=== PATIENT | female | born 1990 | race Caucasian/White ===

== ENCOUNTER 2021-09-25 08:47 | Emergency (ER) | payer MEDICAID, SELFPAY ==
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
--- NOTE | ~2021-09-25 | CT_ITS ---
EXAMINATION: HEAD CT WITHOUT CONTRAST MAXILLOFACIAL CT WITHOUT CONTRAST CLINICAL INFORMATION: Trauma. Jaw pain. COMPARISON: None. TECHNIQUE: Contiguous axial imaging of the head was performed without the administration of IV contrast. Axial multidetector volumetric images were also obtained through the facial bones without contrast from the frontal sinuses through the mandible. Multiplanar reconstructed images in coronal and sagittal orientations were submitted. This CT examination was performed using dose optimization techniques as appropriate, variously including the following: *Automated exposure control *Adjustment of mA and/or kV according to patient size (this includes techniques or standardized protocols for targeted exams where dose is matched to indication/reason for exam; i.e. extremities or head) *Use of iterative reconstruction technique DOSE: 787 mGy-cm FINDINGS: HEAD: There is no evidence of acute intracranial hemorrhage or territorial infarction. No abnormal mass-effect or midline shift. No extra-axial fluid collections. Duron to white matter differentiation is well preserved. The ventricles are normal in size and configuration. There is no abnormal attenuation within the brain parenchyma. No acute osseous or soft tissue abnormalities. There is a 2 x 1.9 cm area of focal cortical thickening at the left parietal calvarium along the external table, most consistent with a osteoma. The sinuses and mastoid air cells are clear. MAXILLOFACIAL: There is a minimally displaced, comminuted fracture of the nasal bone. No additional facial fractures are identified. The mandible, maxilla, pterygoid plates, zygomatic arches, paranasal sinus hennessy, and bony orbits are intact. There is focal soft tissue swelling over the right knee mandible anteriorly. No underlying radiodense foreign bodies or discrete hematomas. The paranasal sinuses and mastoid air cells remain well-aerated. Leftward deviation of the nasal septum. Nasopharynx and oropharynx are unremarkable. Imaged cervical spine is intact with mild degenerative spondylosis. CT/CT facial bones wo con IMPRESSION: 1. No acute intracranial pathology. 2. Nondisplaced nasal bone fracture. No additional facial fractures. 3. Soft tissue swelling over the right hemimandible.
--- NOTE | ~2021-09-25 | XR_ITS ---
EXAMINATION: XR HAND, LEFT CLINICAL INFORMATION: Pain status post trauma left hand fourth and fifth digits COMPARISON: None TECHNIQUE: PA, lateral, and oblique views of the left hand. FINDINGS: There is no evidence of acute fracture or dislocation of the left hand. No significant soft tissue swelling is appreciated. Joint spaces are maintained. No erosive changes seen. XR/XR hand LT min 3V IMPRESSION: No significant bony abnormality of the left hand identified.
[2021-09-25 08:50] VITALS: BP 115/80; PULSE 88; RESP 19; TEMP 36.6; O2SAT 98; BMI 19.8
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
[2021-09-25 09:31] LABS: MANUAL DIFF FLAG NO
[2021-09-25 09:33] LABS: Basophils Percent Auto 0.8 % (0-2); Eosinophils Absolute Auto 0.1 X10*3/uL (0.0-0.4); Eosinophils Percent Auto 1.9 % (0-4); Hematocrit 41.3 % (37.0-47.0); Hemoglobin 13.9 g/dl (12.0-16.0); Imm Gran Abs Auto 0.02 X10*3/uL (0.00-0.03); Imm Gran Pct Auto 0.4 % (0.0-0.4); Lymphocytes Percent Auto 37.9 % (20-40); Mean Corpuscular HGB Conc 33.7 g/dl (31.0-35.0); Mean Corpuscular Hemoglobin 31.8 pg (27.0-33.0); Mean Corpuscular Volume 94.5 fL (80.0-98.0); Mean Platelet Volume 9.9 fL (9.4-12.3); Monocytes Absolute Auto 0.4 X10*3/uL (0.1-1.2); Monocytes Percent Auto 7.7 % (2-11); Neutrophils Absolute Auto 2.7 x10*3/uL (2.0-8.3); Neutrophils Percent Auto 51.3 % (45-73); Platelet Count 328 X10*3/uL (160-400); Red Blood Count 4.37 X10*6/uL (4.20-5.50); Red Cell Distribution Width 12.9 % (11.0-16.0); White Blood Count 5.2 X10*3/uL (4.8-10.8)
[2021-09-25] MEDS: Acetaminophen 325 MG TABLET 975 MG PO (09:33)
[2021-09-25 09:40] LABS: INTERNATIONAL NORM RATIO 1.1 (0.9-1.1); Prothrombin Time 12.6 SEC (9.9-13.0)
[2021-09-25 09:43] LABS: Partial Thromboplastin Time 31.1 SEC (24.1-38.0)
[2021-09-25 09:55] LABS: COVID-19 Test Negative (Negative); IDNOW Serial# 16C4AD1C
[2021-09-25 10:05] LABS: Alanine Aminotransferase 17 U/L (0-31); Albumin Level 4.4 g/dL (3.5-5.0); Alkaline Phosphatase 42 U/L (39-117); Anion Gap 14 (12-20); Aspartate Amino Transferase 17 U/L (5-31); Bilirubin Direct 0.2 mg/dL (0.0-0.5); Bilirubin Total 0.3 mg/dL (0.0-1.0); Blood Urea Nitrogen 11 mg/dL (9-16); Calcium 9.8 mg/dL (8.4-10.2); Carbon Dioxide 23 mmol/L (22-29); Chloride 107 mmol/L (96-108); Creatinine Clr Calc Pharmacy 81.7; Estimated Glomerular Filt Rate > 60; Glucose Random 95 mg/dL (60-115); Lipase 10 U/L (8-78); Magnesium 1.8 mg/dL (1.6-2.6); Potassium 4.7 mmol/L (3.3-5.1); Sodium 139 mmol/L (135-145); Total Protein 7.1 g/dL (6.5-8.0)
[2021-09-25 10:09] LABS: HCG Quantitative < 2 mIU/mL
[2021-09-25 10:26] LABS: Appearance Urine CLEAR; Color Urine YELLOW; Glucose Urine UA NEG (NEG); Leukocyte Esterase Urine NEG (NEG); Nitrite Urine NEG (NEG); PH 6.5 (5.0-8.0); UACC Culture Trigger NO; Urine Blood 2+ (NEG); Urine Ketones NEG (NEG); Urine Protein NEG (NEG-TRACE)
[2021-09-25 10:30] LABS: UPreg QC Valid YES; Urine Pregnancy NEGATIVE (NEGATIVE)
[2021-09-25 10:33] LABS: Mucus Urine 3+ /LPF; Squamous Epithelial Cell Urine 2+ /LPF
[2021-09-25 10:34] LABS: WBC Urine 0 /HPF (0-4)
[2021-09-25 10:37] LABS: Amphetamine Screen Urine Not Detected (Not Detect); Barbiturates, Urine Not Detected (Not Detect); Benzodiazepines Screen Urine Not Detected (Not Detect); Cannabinoid Screen Urine POSITIVE (Not Detect); Cocaine Screen Urine Not Detected (Not Detect); Fentanyl, urine Not Detected (Not Detect); Opiate Screen Urine Not Detected (Not Detect); Phencyclidine Screen Urine Not Detected (Not Detect)
[2021-09-25] MEDS: iohexoL 350 MG/ML 75 ML INFUS..BTL IV (11:03)
[2021-09-25 12:40] VITALS: BP 99/74; PULSE 69; RESP 14; TEMP 36.7; O2SAT 100
[2021-09-25] MEDS: Ibuprofen 600 MG TABLET PO (13:43)
== END 2021-09-25 14:31 | disposition home or self-care (01) ==
PROVIDERS: Physician Assistant; Emergency Provider Student in an Organized Health Care Education/Training Program
DX: S02.2XXA Fracture of nasal bones, initial encounter for closed fracture (principal); S00.81XA Abrasion of other part of head, initial encounter; M54.2 Cervicalgia; F12.90 Cannabis use, unspecified, uncomplicated; R51.9 Headache, unspecified; R31.9 Hematuria, unspecified; V29.40XA Motorcycle driver injured in collision with unspecified motor vehicles in traffic accident, initial encounter; Y93.9 Activity, unspecified; Y92.410 Unspecified street and highway as the place of occurrence of the external cause; Y99.9 Unspecified external cause status; Z20.822 Contact with and (suspected) exposure to COVID-19; Z79.899 Other long term (current) drug therapy
CPT/HCPCS: 36415; 70450; 70486; 73130; 74177; 80048; 80076; 80307; 81001; 81025; 82550; 83690; 83735; 84702; 85025; 85610; 85730; 87635; 96365; 99284; Q9967

== ENCOUNTER 2022-12-15 07:41 | Emergency (ER) | payer OTHER, SELFPAY ==
[2022-12-15 07:57] VITALS: BP 108/67; PULSE 84; RESP 12; TEMP 36.9; O2SAT 100; BMI 21.7
[2022-12-15 08:50] LABS: IDNOW Serial# 08D9AD1C; Influenza A Negative (Negative); Influenza B2 Negative (Negative)
[2022-12-15 08:51] LABS: COVID-19 Test Negative (Negative); IDNOW Serial# BCCEAD1C
[2022-12-15 09:01] LABS: IDNOW Serial# 08D9AD1C; Strep A Nucleic Acid Negative (Negative)
--- NOTE | 2022-12-28 14:00 | ED_ITS ---
HPI - General Adult General Chief complaint: General Medical Stated complaint: sore throat Time Seen by Provider: 12/15/22 08:56 Related Data Allergies Allergy/AdvReac Type Severity Reaction Status Date / Time Seasonal Allergies Allergy Itchy Eyes Verified 09/25/21 09:05 [facility] Social History Social History Advance Directives: No Physical Exam ED Vital Signs: BMI result Body Mass Index 21.7 Medical Decision Making Lab Data Labs: Lab Results 12/15/22 12/15/22 12/15/22 Range/Units 08:10 08:10 08:18 COVID-19 (CARLENE) Negative (Negative) COVID-19 Clin Com See Note Influenza Type A (STEPHIE) Negative (Negative) Influenza Type B (STEPHIE) Negative (Negative) Influenza A & B Note See Note S. pyogenes GrpA STEPHIE Negative (Negative) Discharge Plan Discharge Clinical Impression: Acute sore throat Patient Disposition: Left Without Being Seen Discharge Date/Time: 12/15/22 09:33
== END 2022-12-15 09:33 | disposition left against medical advice (07) ==
LOC: HO.ED 09:18
PROVIDERS: Emergency Provider Emergency Medicine
DX: J02.9 Acute pharyngitis, unspecified (principal); Z20.822 Contact with and (suspected) exposure to COVID-19
CPT/HCPCS: 87502; 87635; 87651; 99281; 99283

== ENCOUNTER 2023-05-22 08:51 | Outpatient (REF) | payer OTHER, SELFPAY ==
[2023-05-23 05:53] LABS: CT PCR NOT DETECTED (Not Detect.); NG PCR NOT DETECTED (Not Detect.)
[2023-05-23 12:30] LABS: BV Int Neg Control Negative (Negative); BV Int Pos Control Positive (Positive)
== END 2023-05-22 08:52 | disposition home or self-care (01) ==
LOC: HO.LAB 08:51
PROVIDERS: PCP Nurse Practitioner Family; Visit Provider Obstetrics & Gynecology
DX: Z20.2 Contact with and (suspected) exposure to infections with a predominantly sexual mode of transmission (principal); Z31.7 Encounter for procreative management and counseling for gestational carrier
CPT/HCPCS: 0353U; 87480; 87510; 87660; 99202

== ENCOUNTER 2023-05-22 08:51 | Outpatient (AMB) | payer OTHER, SELFPAY ==
--- NOTE | 2023-05-22 09:06 | MHC.OFFVIS ---
Intake Vital Signs 05/22/23 09:08 Height 5 ft 1 in Weight 115 lb BMI 21.7 BP 100/64 Intake Visit Reasons: HSG Consult/DO NOT RS Intake Note: Patient needs HSG for surrogacy Allergies Seasonal Allergies Allergy (Verified 05/22/23 09:06) Itchy Eyes Is last menstrual period known: Yes Last menstrual period: 04/27/23 HPI HPI Comments History of Present Illness Details Presenting requesting a saline hysterosonogram day 7-10 as part of the surrogacy workup. The patient is going through a clinic in [place] and would like to be a surrogate for a couple with infertility. Hysterosonogram was requested as part of the workup on day 7-10 of her menstrual cycle. No abnormal uterine bleeding, no vaginal discharge, no other concerns PFSH Surgical History Hx of tubal ligation Social History Alcohol intake: never Patient Tobacco Use Status: Never used Tobacco Sexual orientation: Straight/Heterosexual Gender identity: Female Female Reproductive History Menstrual Date of last menstrual period: 04/27/23 control method: permanent sterilization Permanent Sterilization: BTL Total pregnancies: 3 Full term: 3 Number of Living Children: 3 Review of Systems Const All systems reviewed & are unremarkable except as noted in HPI and below Physical Exam Vital Signs: Last Vital Signs BP 100/64 05/22/23 09:08 BMI result Body Mass Index 21.7 General: Yes no CVA tenderness External Female Exam: normal external appearance and normal appearance of the urethra Speculum Exam - Vagina: normal appearance of the vagina, normal palpation, no lesions and no masses Speculum Exam - Cervix: normal appearance of the cervix, normal palpation, no lesions, no masses and nontender Bimanual exam- vagina & uterus: normal bimanual exam, normal palpation, uterine size normal, normal palpation, uterine shape normal, No Cervical tenderness present and non-tender Bimanual Exam- Adnexa, other: normal adnexae Back/Spine/Pelvis Back: no CVA tenderness Assessment & Plan Assessment & Plan (1) Encounter for procreative management and counseling for person acting as gestational surrogate: Code(s): Z31.7 - Encounter for procreative management and counseling for gestational carrier Plan: Blood work workup has been done and ordered by the patient PCP . GC/CT with BV panel taken. Instructions given the patient to request from [facility] in [place] documentation requesting the specific test saline infusion hystero sonogram, what day of her next cycle, diagnosis and reason for the test, signed by [facility] specialist for certified in addition to call day 1 of next menstrual cycle in order to schedule day 7-10 saline hysterosonogram. Orders: Orders Bacterial Vaginosis Panel Today Z20.2 - Contact with and (suspected) exposure to infections with a predominantly sexual mode of transmission, Z31.7 - Encounter for procreative management and counseling for gestational carrier CT NG by PCR Today Z20.2 - Contact with and (suspected) exposure to infections with a predominantly sexual mode of transmission, Z31.7 - Encounter for procreative management and counseling for gestational carrier Coding Level of Care Code New Pt Level 3 (48502) Diagnoses Encounter for procreative management and counseling for person acting as gestational surrogate Z31.7
[2023-05-22 09:08] VITALS: BP 100/64; BMI 21.7
== END 2023-05-22 09:51 | disposition home or self-care (01) ==
LOC: HO.HWS 08:51
PROVIDERS: PCP Nurse Practitioner Family; Visit Provider Obstetrics & Gynecology
DX: Z31.7 Encounter for procreative management and counseling for gestational carrier (principal)
CPT/HCPCS: 99203

== ENCOUNTER 2023-05-22 09:36 | Outpatient (REF) | payer OTHER, SELFPAY | END 2023-05-22 09:37 | disposition home or self-care (01) | LOC: HO.LNP 09:36 | PROVIDERS: Visit Provider Obstetrics & Gynecology | DX: Z13.89 Encounter for screening for other disorder (principal) ==

== ENCOUNTER 2023-06-05 08:08 | Outpatient (AMB) | payer OTHER, SELFPAY ==
--- NOTE | 2023-06-05 08:18 | A.OFFVIS_ITS ---
Intake Intake Visit Reasons: Pelvic saline sonogram Allergies Seasonal Allergies Allergy (Verified 05/22/23 09:06) Itchy Eyes PFSH Surgical History Hx of tubal ligation Social History Alcohol intake: never Patient Tobacco Use Status: Never used Tobacco Sexual orientation: Straight/Heterosexual Gender identity: Female Results AMB Test Urine AMB Test Urine Negative Last Edit by JEN Abdi on 06/05/23 08:18 Results Reviewed Results Reviewed: Laboratory Last Values Tst Clinic Negative 06/05/23 08:18 Assessment & Plan Assessment & Plan (1) Encounter for procreative management and counseling for person acting as gestational surrogate: Code(s): Z31.7 - Encounter for procreative management and counseling for gestational carrier Plan: Urine test done in the office was negative. Time-out for Sonohysterogram procedure was done. Speculum was placed in patient's vagina, vagina and cervix were prepped with betadine. A tenaculum was applied to the cervix. A 5 [place] HSG catheter was introduced into the cervix and balloon inflated. Speculum was removed. Saline was injected , the uterine cavity distended and normal with no evidence of endometrial pathology. At the end, the catheter was taken out from the uterine cavity after deflating the balloon . All instruments were removed from vagina and aftercare instructions were given. In structions given to patient to call in case of fever above 100.4 severe abdominal/ pain, nausea and/or vomiting, heavy vaginal bleeding. This note was generated with a voice recognition program. Some errors may have been overlooked during the review of this note. Sometimes these errors may affect the content or meaning of a given sentence. Orders: Orders US sonohysterography Today Z31.7 - Encounter for procreative management and counseling for gestational carrier AMB HCG Urine Test Today Z32.02 - Encounter for test, result negative Coding Level of Care Code Procedure Only Diagnoses Encounter for procreative management and counseling for person acting as gestational surrogate Z31.7 Comment sonohysterography
== END 2023-06-05 15:08 | disposition home or self-care (01) ==
LOC: HO.HWS 08:08
PROVIDERS: PCP Nurse Practitioner Family; Visit Provider Obstetrics & Gynecology
DX: Z31.7 Encounter for procreative management and counseling for gestational carrier (principal); Z32.02 Encounter for pregnancy test, result negative
CPT/HCPCS: 58340

== ENCOUNTER 2023-06-05 08:20 | Outpatient (REF) | payer OTHER, SELFPAY ==
--- NOTE | ~2023-06-05 | US_ITS ---
Examination: Ultrasound sonohysterography. CLINICAL INDICATION: Procreative management and counseling. COMPARISON: None. TECHNIQUE: Following intrauterine administration of catheter and injection of simple saline under fluoroscopy static and medial images were obtained for evaluation. FINDINGS: The uterus is anteverted and anteflexed measuring 8.9 x 4.0 x 5.5 cm. Endometrial thickness is 0.4 cm. Right ovary measures 2.2 x 1.8 x 3.7 cm and volume 7.7 mL. There is a dominant follicle. The left ovary measures 2.6 x 1.4 x 1.5 cm and volume 2.9 mL and appears unremarkable. There is no free fluid in the cul-de-sac. On initial sonogram the endometrium normal in appearance without any focal polyp or mass. US/US sonohysterography IMPRESSION: 1. Unremarkable uterus. No polyp or mass seen in the endometrial cavity on hysterosonogram . 2. Dominant follicle right ovary. 3. Unremarkable left ovary. 4. No free fluid in the cul-de-sac.
== END 2023-06-05 08:21 | disposition home or self-care (01) ==
LOC: HO.US 08:20
PROVIDERS: PCP Nurse Practitioner Family; Visit Provider Obstetrics & Gynecology
DX: Z31.7 Encounter for procreative management and counseling for gestational carrier (principal)
CPT/HCPCS: 58340; 76831; 81025

== ENCOUNTER 2023-06-22 09:41 | Outpatient (AMB) | payer OTHER, SELFPAY ==
--- NOTE | 2023-06-22 09:42 | A.OFFVIS_ITS ---
Intake Intake Visit Reasons: Labs and u/s request Operations Research Scientist Required: No Information Interpreted: non-clinical & clinical Allergies Seasonal Allergies Allergy (Verified 06/22/23 09:43) Itchy Eyes HPI HPI Comments History of Present Illness Details The patient is scheduled tele health visit requesting day 2 ultrasound and a set of blood work for her fertility surrogacy. PFSH Surgical History Hx of tubal ligation Social History Alcohol intake: never Patient Tobacco Use Status: Never used Tobacco Sexual orientation: Straight/Heterosexual Gender identity: Female Review of Systems Const All systems reviewed & are unremarkable except as noted in HPI and below Reports as per HPI and Reports no additional complaints GI Reports no additional complaints Reports no additional complaints Assessment & Plan Assessment & Plan (1) Encounter for procreative management and counseling for person acting as gestational surrogate: Code(s): Z31.7 - Encounter for procreative management and counseling for gestational carrier Plan: I explained to the patient that I am a general OBGYN with no additional tra ining/experience in infertility and surrogacy management, I recommended to the patient to contact [facility]/infertility for further management ( phone number and address was provided to the patient). All questions answered, the patient verbalized understanding. I spent a total of 10 minutes reviewing the chart, communicating to the patient via video and documenting the medical record Telehealth Telehealth Location of provider rendering services: practice address Location of patient: address on file Patient Identification confirmed using: Name, : Yes Telehealth method: video Patient verbally consented to treatment: Yes Patient verbally consented to billing insurance company: Yes Patient informed of any privacy concerns related to visit: Yes Coding Level of Care Code Tele Est Pt Level 1 (73352) Diagnoses Encounter for procreative management and counseling for person acting as gestational surrogate Z31.7
== END 2023-06-22 18:39 ==
LOC: HO.HWS 09:42
PROVIDERS: PCP Nurse Practitioner Family; Visit Provider Obstetrics & Gynecology
DX: Z31.7 Encounter for procreative management and counseling for gestational carrier (principal)
CPT/HCPCS: 99211

== ENCOUNTER → 2023-06-22 09:41 | Outpatient (BNVA) | payer OTHER, SELFPAY | PROVIDERS: PCP Nurse Practitioner Family; Visit Provider Obstetrics & Gynecology ==